=== PATIENT | male | born 1985 | race Two or more races ===

== ENCOUNTER 2021-07-20 08:26 | Inpatient (IN) | payer BC, OTHER ==
[~2021-07-20] VITALS: Ht 172.7 cm; Wt 84.1 kg
[2021-07-20] MEDS ORDERED: AZITHROMYCIN 500MG/ 250ML 250 ML IV ONE (12:00)
[2021-07-20] MEDS ORDERED: cefTRIAXone 1GM/50ML D5W 50 ML IV ONE (12:00)
[2021-07-20] MEDS ORDERED: DexAMETHasone SOD PHOS 10MG/1ML VIAL INJ IV ONE (12:00)
[2021-07-20 12:30] LABS: Basophils # (auto) 0.2 10 ^3/uL (0-0.2); Basophils % (auto) 4.4 % (0.0-2.0); Eosinophils # (auto) 0 10 ^3/uL (0-0.8); Eosinophils % (auto) 0.1 % (0.0-7.0); Hematocrit 42.4 % (41.0-53.0); Hemoglobin 15.1 g/dL (13.5-17.5); Lymphocytes # (auto) 0.6 10 ^3/uL (0.4-5.4); Lymphocytes % (auto) 15.2 % (10.0-50.0); Mean Corpuscular Hemoglobin 30.7 pg (28.0-32.0); Mean Corpuscular Hgb Conc. 35.7 g/dL (32.0-36.0); Mean Corpuscular Volume 86.2 fL (80.0-100.0); Monocytes # (auto) 0.3 10 ^3/uL (0-1.3); Monocytes % (auto) 8.3 % (0.0-12.0); Nucleated Red Blood Cells % 0.4 %; Red Blood Cells 4.92 10^6/uL (4.5-5.90); Red Cell Distribution Width 11.7 % (11.8-14.3); White Blood Cell 4.1 10^3/uL (4.4-10.8)
[2021-07-20] MEDS ORDERED: MORPHINE SULFATE INJECTION 2 MG/ML SYRG IV PRN ×3 (12:30→23:45)
[2021-07-20] MEDS ORDERED: NITROGLYCERIN 0.4 MG SL TAB SL PRN ×2 (12:30→23:45)
[2021-07-20 12:45] LABS: Albumin 2.8 g/dL (3.4-5.0); Calcium 8.4 mg/dL (8.5-10.1); Potassium 3.7 mmol/L (3.5-5.1)
[2021-07-20 12:51] LABS: BUN/Creatinine Ratio 7.4; Bilirubin, Total 0.6 mg/dL (0.2-1.0); Total Protein 7.1 g/dL (6.4-8.2)
[2021-07-20] MEDS ORDERED: REMDESIVIR PER PHARMACY 0 ML IV SCH (20:00)
[2021-07-20] MEDS ORDERED: ACETAMINOPHEN 500 MG TAB PO PRN (20:00)
[2021-07-20] MEDS ORDERED: REMDESIVIR 200 MG in NS 210ml LOADING DOSE ADULT IV ONE (21:00)
[2021-07-20 21:23] LABS: Thyroid Stimulating Hormone 0.42 uIU/mL (0.358-3.74)
[2021-07-20] MEDS: BUDESONIDE (INHALATION) 180 MCG IH IN SCH (22:00)
[2021-07-20] MEDS: ENOXAPARIN SOD 40 MG/0.4 ML SYRINGE SC SCH (22:28)
[2021-07-20] MEDS ORDERED: DOCUSATE SOD 100 MG CAP PO PRN (23:45)
[2021-07-20] MEDS ORDERED: ONDANSETRON HCL 4 MG/2 ML VIAL IV PRN (23:45)
[2021-07-20] MEDS ORDERED: TEMAZEPAM 15 MG CAP PO PRN (23:45)
[2021-07-20] MEDS ORDERED: DEXTROSE (50%) 50ML SYRG IV PRN (23:45)
[2021-07-20] MEDS ORDERED: ALUM & MAG HYDROX-SIMETH LIQ(MAALOX) 30 ML PO PRN (23:45)
[2021-07-20] MEDS ORDERED: HYDROcodone-ACET 5/325MG TAB PO PRN (23:45)
[2021-07-21] MEDS: DOXYCYCLINE 100MG/250ML 250 ML IV SCH ×3 (00:40→21:07)
[2021-07-21] MEDS: ALBUTEROL SULF HFA 90MCG INH 200DOSE IN PRN ×4 (00:59→23:46)
[2021-07-21 03:07] LABS: Triglycerides 102 mg/dL (< 150)
[2021-07-21 03:17] LABS: Cholesterol 75 mg/dL (< 200); HDL Cholesterol 28 mg/dL (40-59); LDL Cholesterol 51 mg/dL (< 100)
[2021-07-21 05:54] LABS: Basophils # (auto) 0 10 ^3/uL (0-0.2); Basophils % (auto) 0.2 % (0.0-2.0); Eosinophils # (auto) 0 10 ^3/uL (0-0.8); Hematocrit 40.8 % (41.0-53.0); Hemoglobin 14.3 g/dL (13.5-17.5); Lymphocytes # (auto) 0.6 10 ^3/uL (0.4-5.4); Lymphocytes % (auto) 18.3 % (10.0-50.0); Mean Corpuscular Hemoglobin 30.6 pg (28.0-32.0); Mean Corpuscular Hgb Conc. 35.1 g/dL (32.0-36.0); Mean Corpuscular Volume 87.1 fL (80.0-100.0); Monocytes # (auto) 0.4 10 ^3/uL (0-1.3); Monocytes % (auto) 12.8 % (0.0-12.0); Neutrophils # (auto) 2.2 10 ^3/uL (1.6-8.6); Neutrophils % (auto) 68.7 % (37.0-80.0); Nucleated Red Blood Cells % 0.3 %; Red Blood Cells 4.68 10^6/uL (4.5-5.90); White Blood Cell 3.3 10^3/uL (4.4-10.8)
[2021-07-21 06:14] LABS: INR 0.99 (0.9-1.15); Partial Thromboplastin Time 26.7 sec (23.6-33.0); Potassium 4.4 mmol/L (3.5-5.1)
[2021-07-21 06:24] LABS: Albumin 2.6 g/dL (3.4-5.0); Bilirubin, Total 0.5 mg/dL (0.2-1.0); Calcium 8.3 mg/dL (8.5-10.1); Phosphorus 3.3 mg/dL (2.5-4.90); Total Protein 6.6 g/dL (6.4-8.2)
[2021-07-21] MEDS: InsuLIN REG 1unit/0.01ml Soln (100units/ml) SC SCH ×4 (07:00→22:01)
[2021-07-21] MEDS: ACCU-CHEK COMFORT CURVE STRIP VI SCH ×4 (07:00→21:54)
[2021-07-21] MEDS: BUDESONIDE (INHALATION) 180 MCG IH IN SCH ×2 (10:09→23:30)
[2021-07-21] MEDS: DexAMETHasone SOD PHOS 10MG/1ML VIAL INJ IV SCH (10:09)
[2021-07-21] MEDS: CHOLECALCIFEROL (VITD3) 2,000 UNIT CAP/TAB PO SCH (10:10)
[2021-07-21] MEDS: ZINC SULFATE 220mg CAP or TAB PO SCH (10:10)
[2021-07-21] MEDS: ASCORBIC ACID 1,000 MG TAB PO SCH (10:10)
[2021-07-21] MEDS: ENOXAPARIN SOD 40 MG/0.4 ML SYRINGE SC SCH ×2 (10:10→21:07)
[2021-07-21] MEDS: IVERMECTIN 3 MG TAB PO SCH (10:10)
[2021-07-21] MEDS ORDERED: DEXTROSE (50%) 50ML SYRG IV PRN (14:00)
[2021-07-21] MEDS: REMDESIVIR 100mg 100 MG in SODIUM CHL 0.9% 230 ML IV SCH (15:00)
[2021-07-21 17:50] VITALS: BP 146/79
[2021-07-21 22:00] VITALS: BP 124/79
[2021-07-22 05:00] VITALS: BP 121/81
[2021-07-22] MEDS: BUDESONIDE (INHALATION) 180 MCG IH IN SCH ×2 (05:51→22:52)
[2021-07-22] MEDS: ALBUTEROL SULF HFA 90MCG INH 200DOSE IN PRN (05:51)
[2021-07-22] MEDS: ACCU-CHEK COMFORT CURVE STRIP VI SCH ×4 (06:09→21:33)
[2021-07-22] MEDS: InsuLIN REG 1unit/0.01ml Soln (100units/ml) SC SCH ×4 (06:10→21:34)
[2021-07-22 08:19] LABS: Basophils # (auto) 0 10 ^3/uL (0-0.2); Basophils % (auto) 0.1 % (0.0-2.0); Eosinophils # (auto) 0 10 ^3/uL (0-0.8); Hematocrit 40.4 % (41.0-53.0); Hemoglobin 14.3 g/dL (13.5-17.5); Lymphocytes # (auto) 0.8 10 ^3/uL (0.4-5.4); Mean Corpuscular Hemoglobin 30.4 pg (28.0-32.0); Mean Corpuscular Hgb Conc. 35.4 g/dL (32.0-36.0); Mean Corpuscular Volume 85.8 fL (80.0-100.0); Monocytes # (auto) 0.6 10 ^3/uL (0-1.3); Monocytes % (auto) 9.1 % (0.0-12.0); Neutrophils # (auto) 5.5 10 ^3/uL (1.6-8.6); Neutrophils % (auto) 79.8 % (37.0-80.0); Nucleated Red Blood Cells % 0.1 %; Red Blood Cells 4.71 10^6/uL (4.5-5.90); White Blood Cell 6.8 10^3/uL (4.4-10.8)
[2021-07-22 08:32] LABS: Albumin 2.6 g/dL (3.4-5.0); Calcium 8.3 mg/dL (8.5-10.1); INR 1.02 (0.9-1.15); Magnesium 3.1 mg/dL (1.6-2.6); Partial Thromboplastin Time 23.2 sec (23.6-33.0); Potassium 3.9 mmol/L (3.5-5.1)
[2021-07-22 08:40] LABS: Bilirubin, Total 0.5 mg/dL (0.2-1.0); Phosphorus 3.7 mg/dL (2.5-4.90); Total Protein 6.2 g/dL (6.4-8.2); Uric Acid 4.7 mg/dL (3.5-7.2)
[2021-07-22 09:00] VITALS: BP 117/70
[2021-07-22] MEDS: ZINC SULFATE 220mg CAP or TAB PO SCH (11:39)
[2021-07-22] MEDS: DexAMETHasone SOD PHOS 10MG/1ML VIAL INJ IV SCH (11:39)
[2021-07-22] MEDS: DOXYCYCLINE 100MG/250ML 250 ML IV SCH ×2 (11:39→21:23)
[2021-07-22] MEDS: CHOLECALCIFEROL (VITD3) 2,000 UNIT CAP/TAB PO SCH (11:40)
[2021-07-22] MEDS: IVERMECTIN 3 MG TAB PO SCH (11:40)
[2021-07-22] MEDS: ASCORBIC ACID 1,000 MG TAB PO SCH (11:41)
[2021-07-22] MEDS: ENOXAPARIN SOD 40 MG/0.4 ML SYRINGE SC SCH ×2 (11:41→21:24)
[2021-07-22 12:24] LABS: Cholesterol 117 mg/dL (< 200); HDL Cholesterol 28 mg/dL (40-59); LDL Cholesterol 72 mg/dL (< 100); Triglycerides 145 mg/dL (< 150)
[2021-07-22 13:09] VITALS: BP 119/76
[2021-07-22] MEDS: REMDESIVIR 100mg 100 MG in SODIUM CHL 0.9% 230 ML IV SCH (14:32)
[2021-07-22 17:00] VITALS: BP 133/84
[2021-07-22] MEDS: INSULIN LANTUS (GLARGINE) 1 /0.01ml (100units/ml) SC SCH (21:34)
[2021-07-22 22:00] VITALS: BP 122/79
[2021-07-23] MEDS: ALBUTEROL SULF HFA 90MCG INH 200DOSE IN PRN ×3 (00:38→22:54)
[2021-07-23 05:00] VITALS: BP 110/71
[2021-07-23] MEDS: ACCU-CHEK COMFORT CURVE STRIP VI SCH ×4 (06:25→21:19)
[2021-07-23] MEDS: InsuLIN REG 1unit/0.01ml Soln (100units/ml) SC SCH ×4 (06:26→21:09)
[2021-07-23 08:27] LABS: Urine Bacteria NONE SEEN /hpf (None Seen); Urine Blood Negative /uL (Negative); Urine Mucus FEW (None Seen); Urine Specific Gravity 1.036 (1.001-1.035); Urine WBC 3 /hpf (0 - 3)
[2021-07-23] MEDS: BUDESONIDE (INHALATION) 180 MCG IH IN SCH ×2 (08:28→19:40)
[2021-07-23 08:30] LABS: Potassium 4.2 mmol/L (3.5-5.1)
[2021-07-23 08:34] VITALS: BP 113/81
[2021-07-23 08:47] LABS: Albumin 2.8 g/dL (3.4-5.0); BUN/Creatinine Ratio 24.4; Bilirubin, Total 0.7 mg/dL (0.2-1.0); Calcium 8.6 mg/dL (8.5-10.1)
[2021-07-23] MEDS: DOXYCYCLINE 100MG/250ML 250 ML IV SCH ×2 (11:28→21:09)
[2021-07-23] MEDS: ENOXAPARIN SOD 40 MG/0.4 ML SYRINGE SC SCH ×2 (11:29→21:09)
[2021-07-23] MEDS: DexAMETHasone SOD PHOS 10MG/1ML VIAL INJ IV SCH (11:30)
[2021-07-23] MEDS: ASCORBIC ACID 1,000 MG TAB PO SCH (11:31)
[2021-07-23] MEDS: CHOLECALCIFEROL (VITD3) 2,000 UNIT CAP/TAB PO SCH (11:31)
[2021-07-23] MEDS: IVERMECTIN 3 MG TAB PO SCH (11:31)
[2021-07-23] MEDS: ZINC SULFATE 220mg CAP or TAB PO SCH (11:32)
[2021-07-23] MEDS: INSULIN LANTUS (GLARGINE) 1 /0.01ml (100units/ml) SC SCH ×2 (11:46→21:10)
[2021-07-23 12:32] VITALS: BP 115/78
[2021-07-23] MEDS: REMDESIVIR 100mg 100 MG in SODIUM CHL 0.9% 230 ML IV SCH (15:17)
[2021-07-23 16:50] VITALS: BP 113/78
[2021-07-23 21:43] VITALS: BP 120/76
[2021-07-24 04:36] VITALS: BP 115/76
[2021-07-24] MEDS: InsuLIN REG 1unit/0.01ml Soln (100units/ml) SC SCH ×2 (06:18→12:27)
[2021-07-24] MEDS: ACCU-CHEK COMFORT CURVE STRIP VI SCH ×2 (06:18→12:14)
[2021-07-24 08:01] LABS: Basophils # (auto) 0 10 ^3/uL (0-0.2); Basophils % (auto) 0.3 % (0.0-2.0); Eosinophils # (auto) 0 10 ^3/uL (0-0.8); Hematocrit 40.1 % (41.0-53.0); Hemoglobin 14.2 g/dL (13.5-17.5); Lymphocytes # (auto) 1.4 10 ^3/uL (0.4-5.4); Lymphocytes % (auto) 18.2 % (10.0-50.0); Mean Corpuscular Hemoglobin 30.3 pg (28.0-32.0); Mean Corpuscular Hgb Conc. 35.4 g/dL (32.0-36.0); Mean Corpuscular Volume 85.4 fL (80.0-100.0); Monocytes # (auto) 0.8 10 ^3/uL (0-1.3); Monocytes % (auto) 10.8 % (0.0-12.0); Neutrophils # (auto) 5.3 10 ^3/uL (1.6-8.6); Neutrophils % (auto) 70.7 % (37.0-80.0); Nucleated Red Blood Cells % 0.1 %; Red Blood Cells 4.69 10^6/uL (4.5-5.90); Red Cell Distribution Width 12.1 % (11.8-14.3); White Blood Cell 7.5 10^3/uL (4.4-10.8)
[2021-07-24 08:05] LABS: Potassium 3.9 mmol/L (3.5-5.1)
[2021-07-24 08:20] LABS: Albumin 2.6 g/dL (3.4-5.0); BUN/Creatinine Ratio 25.3; Bilirubin, Total 0.6 mg/dL (0.2-1.0); Calcium 8.3 mg/dL (8.5-10.1); Total Protein 5.9 g/dL (6.4-8.2)
[2021-07-24 09:00] VITALS: BP_SYST 119; BP_SYST 120; BP_DIAS 75
[2021-07-24] MEDS: BUDESONIDE (INHALATION) 180 MCG IH IN SCH (09:35)
[2021-07-24] MEDS: ALBUTEROL SULF HFA 90MCG INH 200DOSE IN PRN (09:35)
[2021-07-24] MEDS: ENOXAPARIN SOD 40 MG/0.4 ML SYRINGE SC SCH (10:00)
[2021-07-24] MEDS: DexAMETHasone SOD PHOS 10MG/1ML VIAL INJ IV SCH (10:04)
[2021-07-24] MEDS: CHOLECALCIFEROL (VITD3) 2,000 UNIT CAP/TAB PO SCH (10:05)
[2021-07-24] MEDS: ASCORBIC ACID 1,000 MG TAB PO SCH (10:05)
[2021-07-24] MEDS: DOXYCYCLINE 100MG/250ML 250 ML IV SCH (10:07)
[2021-07-24] MEDS: ZINC SULFATE 220mg CAP or TAB PO SCH (10:07)
[2021-07-24] MEDS: IVERMECTIN 3 MG TAB PO SCH (10:08)
[2021-07-24] MEDS: INSULIN LANTUS (GLARGINE) 1 /0.01ml (100units/ml) SC SCH (10:28)
[2021-07-24] MEDS ORDERED: METF-370 PO (10:46)
[2021-07-24] MEDS ORDERED: BLOO1KIT60 XX (10:46)
[2021-07-24] MEDS ORDERED: BLOO-89 XX (10:46)
[2021-07-24] MEDS ORDERED: LANC-347 XX (10:46)
[2021-07-24] MEDS ORDERED: ASPI1TAB20 PO (10:46)
[2021-07-24] MEDS ORDERED: ERGO1CAP23 PO (10:48)
[2021-07-24] MEDS: REMDESIVIR 100mg 100 MG in SODIUM CHL 0.9% 230 ML IV SCH (12:14)
[2021-07-24 12:52] VITALS: BP 119/75
== END 2021-07-24 15:45 | disposition home or self-care (01) | DRG 177 ==
LOC: ER 08:26 → TELE 12:16 → TELE-EAST 07-21 17:48
PROVIDERS: ADMIT Hospitalist; ATTEND Internal Medicine
PROC: XW033E5 Introduction of Remdesivir Anti-infective into Peripheral Vein, Percutaneous Approach, New Technology Group 5 (ICD-10-PCS; principal; 2021-07-20)
DX: U07.1 COVID-19 (principal); J12.82 Pneumonia due to coronavirus disease 2019; J96.01 Acute respiratory failure with hypoxia; D89.839 Cytokine release syndrome, grade unspecified; E11.8 Type 2 diabetes mellitus with unspecified complications; E66.01 Morbid (severe) obesity due to excess calories; E78.5 Hyperlipidemia, unspecified; R53.81 Other malaise; Z68.28 Body mass index [BMI] 28.0-28.9, adult
CPT/HCPCS: 36415; 36600; 71045; 71046; 80053; 80061; 81001; 82043; 82306; 82728; 82805; 82962; 83036; 83605; 83615; 83735; 83880; 84100; 84443; 84484; 84550; 85025; 85379; 85610; 85730; 86141; 87040; 87426; 93005; 94640; 96365; 96368; 96375; 99291; G0378; J0696; J1100; J1815; J3490